=== PATIENT | male | born 1960 | race Caucasian/White ===

== ENCOUNTER → 2016-05-17 | Outpatient (CLI) | payer OTHER | LOC: RAD 10:36 | PROVIDERS: ATTEND Internal Medicine Rheumatology | DX: M34.9 Systemic sclerosis, unspecified (principal); R13.10 Dysphagia, unspecified; K21.0 Gastro-esophageal reflux disease with esophagitis; K44.9 Diaphragmatic hernia without obstruction or gangrene; J84.10 Pulmonary fibrosis, unspecified | CPT/HCPCS: 71250; 74210 ==

== ENCOUNTER 2017-07-22 14:33 | Emergency (ER) | payer OTHER ==
--- NOTE | 2017-07-22 14:47 | ER Document Report ---
ED Medical Screen (RME) - General Chief Complaint: Head Injury without LOC Stated Complaint: FALL / HEAD INJURY Time Seen by Provider: 07/22/17 14:43 Notes: RAPID MEDICAL EVALUATION DISCLOSURE I have seen this patient as part of a Rapid Medical Evaluation and, if applicable, placed any initially appropriate orders. The patient will be seen and fully evaluated, including a full history and physical exam, by a provider ( in Main ED or Fast Track) when a room becomes available. 57-year-old male here with who states he was on top of a garbage truck and fell off at approximately a height of 8-10 feet. Does not remember if he had any loss of consciousness but is complaining of some right jaw pain, headache and neck pain. TRAVEL OUTSIDE OF THE [place] IN LAST 30 DAYS: No - Related Data Allergies/Adverse Reactions: No Known Allergies Allergy (Verified 07/22/17 14:34) Past Medical History - Past Medical History Cardiac Medical History: Reports: Hx Hypercholesterolemia
[2017-07-22] MEDS ORDERED: MORPHINE SULFATE 10 MG/ML INJ IV ONE (15:05)
[2017-07-22] MEDS ORDERED: ONDANSETRON HCL INJ/PF 4 MG/2 ML SDV ONE (15:13)
--- NOTE | 2017-07-22 15:14 | ER Document Report ---
ED General - General Chief Complaint: Head Injury without LOC Stated Complaint: FALL / HEAD INJURY Time Seen by Provider: 07/22/17 14:43 Mode of Arrival: Ambulatory Information source: Patient, Relative Notes: 57-year-old male with hypertension, scleroderma presents via private vehicle after falling off of a garbage truck just prior to arrival. is accompanying the patient who also works there and states that the patient was working on top of the garbage truck trying to pull a lever located on top of the trunk when the lever snapped causing him to fall approximately 10-12 feet directly onto his head on to the cement. The fall was witnessed and reports there was no loss of consciousness. Patient was confused after the fall. Upon his arrival patient was sent from triage to CAT scan prior to my evaluation. Patient now complaining of headache, left ear hearing loss, left ear pain, increased clear rhinorrhea, lower extremity weakness, left hip pain. She denies any preceding dizziness, chest pain, shortness of breath. TRAVEL OUTSIDE OF THE [place] IN LAST 30 DAYS: No - HPI Onset: Just prior to arrival Onset/Duration: Sudden Quality of pain: Achy, Throbbing Severity: Moderate Associated symptoms: Earache, Nausea Exacerbated by: Movement Relieved by: Remaining still Similar symptoms previously: No Recently seen / treated by doctor: No - Related Data Allergies/Adverse Reactions: No Known Allergies Allergy (Verified 07/22/17 14:34) Past Medical History - General Information source: Patient, Parent, [facility] Records - Social History Smoking Status: Current Every Day Smoker Frequency of alcohol use: Occasional Drug Abuse: None Lives with: Spouse/Significant other Family History: None - Past Medical History Cardiac Medical History: Reports: Hx Hypercholesterolemia Review of Systems - Review of Systems Constitutional: Weakness EENT: Ear pain, Other - hearing loss. denies: Blurred vision Cardiovascular: Dizziness. denies: Chest pain Respiratory: denies: Short of breath Gastrointestinal: Nausea. denies: Abdominal pain, Vomiting Genitourinary: denies: Flank pain Musculoskeletal: Back pain, Joint pain, Muscle pain, Muscle stiffness, Neck pain Skin: Other - Abrasion top of head Neurological/Psychological: Weakness, Headaches. denies: Lost consciousness Physical Exam - Vital signs Vitals: Resp 9 L 07/22/17 15:09 - Notes Notes: PHYSICAL EXAMINATION: GENERAL: C collar in place. On backboard. GCS 15 HEAD: Abrasion with mild bleeding on top of head. EYES: Pupils equal round and reactive to light, extraocular movements intact, sclera anicteric, conjunctiva are normal. ENT: Nares patent, oropharynx clear without exudates. Moist mucous membranes. No hemanotympanum . No blood in nares. No dental fracture. Clear rhinorrhea from nares bilaterally NECK: Midline cervical tenderness no deformities or step-offs LUNGS: Breath sounds clear to auscultation bilaterally and equal. No wheezes rales or rhonchi. HEART: Regular rate and rhythm without murmurs. Pulses intact all throughout. ABDOMEN: Soft, nontender, nondistended abdomen. No guarding, no rebound. No masses appreciated. Musculoskeletal: Pelvis stable. Left hip tender to palpation no obvious deformity. NEUROLOGICAL: Cranial nerves grossly intact. Normal speech. 2/5 strength in dorsi and plantar flexion. Patient unable to hold her leg up against gravity PSYCH: Normal mood, normal affect. SKIN: Warm, No active bleeding Course - Re-evaluation Re-evalutation: Laboratory 07/22/17 07/22/17 07/22/17 15:05 15:05 15:05 WBC 13.3 H RBC 5.04 Hgb 15.6 Hct 45.6 MCV 91 MCH 30.9 MCHC 34.1 RDW 13.5 Plt Count 293 Seg Neutrophils % 79.0 H Lymphocytes % 10.6 L Monocytes % 7.2 Eosinophils % 2.7 Basophils % 0.5 Absolute Neutrophils 10.5 H Absolute Lymphocytes 1.4 Absolute Monocytes 0.9 Absolute Eosinophils 0.4 Absolute Basophils 0.1 PT 13.0 INR 0.94 APTT 29.4 Sodium 142.8 Potassium 3.5 L Chloride 105 Carbon Dioxide 27 Anion Gap 11 BUN 15 Creatinine 0.87 Est GFR ( Amer) > 60 Est GFR (Non-Af Amer) > 60 Glucose 89 Calcium 9.8 Total Bilirubin 0.7 Direct Bilirubin 0.2 Neonat Total Bilirubin Not Reportable Neonat Direct Bilirubin Not Reportable Neonat Indirect Bili Not Reportable AST 37 ALT 28 Alkaline Phosphatase 74 Total Protein 7.7 Albumin 4.[address] 07/22/17 14:45 IMPRESSION: No acute changes Head CT 07/22/17 14:45 IMPRESSION: NORMAL BRAIN CT WITHOUT CONTRAST. EVIDENCE OF ACUTE STROKE: NO. Facial Bones CT 07/22/17 14:47 IMPRESSION: NO ACUTE FINDINGS. 07/22/17 15:25 57-year-old male with a history of hypertension, scleroderma presents after falling off a garbage truck from approximately 10-12 feet. Patient fell directly onto his head onto the cement. His fall was witnessed and bystander reports no loss of consciousness. Patient presented via private vehicle, was placed in c-collar in triage and sent directly to CAT scan. ATLS protocol initiated. Patient is airway intact, breath sounds bilaterally, radial femoral and DP pulses intact. Patient does have intact sensation in the upper and lower extremities but decreased strength in the lower extremities bilaterally. Patient has clear rhinorrhea which he reports has started since the fall. He is complaining of left hearing loss although there is no hemotympanum. Patient received morphine 4 mg, Zofran 4 mg IV. Tetanus ordered. Patient will be transferred to [facility] excepting physician . 07/23/17 00:04 - Vital Signs Vital signs: Temp Pulse Resp BP Pulse Ox 10 L 132/87 H 07/22/17 16:08 07/22/17 16:08 - Laboratory Result Diagrams: 07/22/17 15:05 07/22/17 15:05 Laboratory results interpreted by me: 07/22/17 07/22/17 15:05 15:05 WBC 13.3 H Seg Neutrophils % 79.0 H Lymphocytes % 10.6 L Absolute Neutrophils 10.5 H Potassium 3.5 L - Diagnostic Test Radiology reviewed: Pending Discharge - Discharge Clinical Impression: Injury of head Fall Qualifiers: Encounter type: initial encounter Qualified Code(s): W19.XXXA - Unspecified fall, initial encounter Lower extremity weakness Qualifiers: Laterality: bilateral Qualified Code(s): R29.898 - Other symptoms and signs involving the musculoskeletal system Abrasion head Qualifiers: Encounter type: initial encounter Qualified Code(s): S00.91XA - Abrasion of unspecified part of head, initial encounter Closed head injury Qualifiers: Encounter type: initial encounter Qualified Code(s): S09.90XA - Unspecified injury of head, initial encounter Condition: Fair Disposition: [facility] Forms: Elevated Blood Pressure
[2017-07-22 15:30] LABS: ABSOLUTE BASOPHILS # (AUTO) 0.1 10^3/uL (0.0-0.2); ABSOLUTE EOSINOPHILS # (AUTO) 0.4 10^3/uL (0.0-0.6); ABSOLUTE LYMPHOCYTES (AUTO) 1.4 10^3/uL (0.5-4.7); ABSOLUTE MONOCYTES (AUTO) 0.9 10^3/uL (0.1-1.4); ABSOLUTE NEUT (AUTO) 10.5 10^3/uL (1.7-8.2); BASOPHILS % (AUTO) 0.5 % (0-2); EOSINOPHILS % (AUTO) 2.7 % (0-6); HEMATOCRIT 45.6 % (37.9-51.0); HEMOGLOBIN 15.6 g/dL (13.5-17.0); LYMPHOCYTES % (AUTO) 10.6 % (13-45); MEAN CORPUSCULAR HEMOGLOBIN 30.9 pg (27.0-33.4); MEAN CORPUSCULAR HGB CONC 34.1 g/dL (32.0-36.0); MEAN CORPUSCULAR VOLUME 91 fl (80-97); MONOCYTES % (AUTO) 7.2 % (3-13); PLATELET COUNT 293 10^3/uL (150-450); RED BLOOD COUNT 5.04 10^6/uL (4.35-5.55); RED CELL DISTRIBUTION WIDTH 13.5 % (11.5-14.0); TOTAL CELLS COUNTED % (AUTO) 100 %; WHITE BLOOD COUNT 13.3 10^3/uL (4.0-10.5)
--- NOTE | 2017-07-22 15:34 | RADIOLOGY REPORT (SQ) ---
EXAM DESCRIPTION: CT FACIAL AREA WITHOUT COMPLETED DATE/TIME: 07/22/2017 3:02 pm REASON FOR STUDY: s/p fall COMPARISON: CT brain, CT cervical spine same date TECHNIQUE: Noncontrasted images through the facial bones and orbits windowed for bone and soft tissu e. Additional coronal and sagittal reconstructed images reviewed. All images stored on PACS. All CT scanners at this facility use dose modulation, iterative reconstruction, and/or weight based d osing when appropriate to reduce radiation dose to as low as reasonably achievable (ALARA). [facility]: Dose Right [facility]: CareDose [facility]: Dose Right [facility]: Teradose 4D [facility]: [employer] RADIATION DOSE: CT Rad equipment meets quality standard of care and radiation dose reduction techniq ues were employed. CTDIvol: 30.4 mGy. DLP: 555 mGy-cm. mGy. LIMITATIONS: None. FINDINGS: FACIAL BONES: No fracture or bone lesion. ORBITS: Intact. No fracture. Symmetric intact globes and retroorbital soft tissues. PARANASAL SINUSES: Clear. No significant mucosal thickening, mass or fluid. No nasal polyps. Maxill kathya sinus outlets are patent. SOFT TISSUES: No mass or edema. INFERIOR BRAIN: Limited view. No acute findings. OTHER: No other significant finding. IMPRESSION: NO ACUTE FINDINGS. TECHNICAL DOCUMENTATION: JOB ID: [id number] Quality ID # [id number]: Final reports with documentation of one or more dose reduction techniques (e.g., Au tomated exposure control, adjustment of the mA and/or kV according to patient size, use of iterative reconstruction technique) 2010 [employer]- All Rights Reserved Reading location - IP/workstation name: [email or web address]
--- NOTE | 2017-07-22 15:37 | RADIOLOGY REPORT (SQ) ---
EXAM DESCRIPTION: CT CERVICAL SPINE WITHOUT COMPLETED DATE/TIME: 07/22/2017 3:02 pm REASON FOR STUDY: s/p fall approx 8-10 ft COMPARISON: None. TECHNIQUE: Axial images acquired through the cervical spine without intravenous contrast. Images re viewed with lung, soft tissue and bone windows. Reconstructed coronal and sagittal MPR images review ed. Images stored on PACS. All CT scanners at this facility use dose modulation, iterative reconstruction, and/or weight based d osing when appropriate to reduce radiation dose to as low as reasonably achievable (ALARA). [facility]: Dose Right [facility]: CareDose [facility]: Dose Right [facility]: Teradose 4D [facility]: [employer] RADIATION DOSE: CT Rad equipment meets quality standard of care and radiation dose reduction techniq ues were employed. CTDIvol: 16.9 mGy. DLP: 355 mGy-cm. mGy. LIMITATIONS: None. FINDINGS: ALIGNMENT: Anatomic. MINERALIZATION: Normal. VERTEBRAL BODIES: No fractures or dislocation. DISCS: Mild disc space loss of height with posterior disc bulging at C3-4, C4-5, C5-6, and C6-7. Mil d bilateral foraminal narrowing at these levels. FACETS, LATERAL MASSES, POSTERIOR ELEMENTS: No fractures. No dislocation. No acute findings. HARDWARE: None in the spine. VISUALIZED RIBS: No fractures. LUNG APICES AND SOFT TISSUES: Obstructive lung disease at the apices. OTHER: No other significant finding. IMPRESSION: No acute changes TECHNICAL DOCUMENTATION: JOB ID: [id number] Quality ID # [id number]: Final reports with documentation of one or more dose reduction techniques (e.g., Au tomated exposure control, adjustment of the mA and/or kV according to patient size, use of iterative reconstruction technique) 2010 [employer]- All Rights Reserved Reading location - IP/workstation name: [email or web address]
--- NOTE | 2017-07-22 15:42 | RADIOLOGY REPORT (SQ) ---
EXAM DESCRIPTION: CT HEAD WITHOUT COMPLETED DATE/TIME: 07/22/2017 3:02 pm REASON FOR STUDY: s/p fall approx 8-10 ft COMPARISON: None. TECHNIQUE: Axial images acquired through the brain without intravenous contrast. Images reviewed wi th bone, brain and subdural windows. Images stored on PACS. All CT scanners at this facility use dose modulation, iterative reconstruction, and/or weight based d osing when appropriate to reduce radiation dose to as low as reasonably achievable (ALARA). [facility]: Dose Right [facility]: CareDose [facility]: Dose Right [facility]: Teradose 4D [facility]: [employer] RADIATION DOSE: CT Rad equipment meets quality standard of care and radiation dose reduction techniq ues were employed. CTDIvol: 53.2 mGy. DLP: 991 mGy-cm. mGy. LIMITATIONS: None. FINDINGS: VENTRICLES: Normal size and contour. CEREBRUM: No masses. No hemorrhage. No midline shift. No evidence for acute infarction. Normal gra y/white matter differentiation. No areas of low density in the white matter. CEREBELLUM: No masses. No hemorrhage. No alteration of density. No evidence for acute infarction. EXTRAAXIAL SPACES: No fluid collections. No masses. ORBITS AND GLOBE: No intra- or extraconal masses. Normal contour of globe without masses. CALVARIUM: No fracture. PARANASAL SINUSES: No fluid or mucosal thickening. SOFT TISSUES: No mass or hematoma. OTHER: No other significant finding. IMPRESSION: NORMAL BRAIN CT WITHOUT CONTRAST. EVIDENCE OF ACUTE STROKE: NO. COMMENT: Quality ID # [id number]: Final reports with documentation of one or more dose reduction techniques (e.g., Automated exposure control, adjustment of the mA and/or kV according to patient size, use of iterative reconstruction technique) TECHNICAL DOCUMENTATION: JOB ID: [id number] [employer]- All Rights Reserved Reading location - IP/workstation name: [email or web address]
[2017-07-22 15:45] LABS: ALANINE AMINOTRANSFERASE 28 U/L (21-72); ALBUMIN 4.5 g/dL (3.5-5.0); ALKALINE PHOSPHATASE 74 U/L (38-126); ANION GAP 11 (5-19); ASPARTATE AMINO TRANSFERASE 37 U/L (17-59); BILIRUBIN,DIRECT 0.2 mg/dL (0.0-0.4); BILIRUBIN,TOTAL 0.7 mg/dL (0.2-1.3); BLOOD UREA NITROGEN 15 mg/dL (7-20); CALCIUM 9.8 mg/dL (8.4-10.2); CARBON DIOXIDE 27 mmol/L (22-30); CHLORIDE 105 mmol/L (98-107); GLUCOSE 89 mg/dL (75-110); POTASSIUM 3.5 mmol/L (3.6-5.0); SODIUM 142.8 mmol/L (137-145); TOTAL PROTEIN 7.7 g/dL (6.3-8.2)
[2017-07-22 15:46] LABS: INTERNATIONAL RATION (INR) 0.94
[2017-07-22 15:47] LABS: PARTIAL THROMBOPLASTIN TIME 29.4 SEC (23.5-35.8)
[2017-07-22 15:57] VITALS: BP 132/87
== END 2017-07-22 16:28 | disposition short-term general hospital (02) ==
LOC: ER 14:33
DX: S09.90XA Unspecified injury of head, initial encounter (principal); S00.91XA Abrasion of unspecified part of head, initial encounter; R11.0 Nausea; H92.02 Otalgia, left ear; H91.92 Unspecified hearing loss, left ear; R53.1 Weakness; M25.552 Pain in left hip; F17.200 Nicotine dependence, unspecified, uncomplicated; R29.898 Other symptoms and signs involving the musculoskeletal system; W17.89XA Other fall from one level to another, initial encounter; Y99.0 Civilian activity done for income or pay; E78.00 Pure hypercholesterolemia, unspecified
CPT/HCPCS: 99285; 96374; 96375; 36415; 85025; 85610; 85730; 80053; 70450; 70486; 72125; L0172; J2270; J2405